=== PATIENT | male | born 1955 | race Caucasian/White ===

== ENCOUNTER 2018-09-26 12:25 | Emergency (ER) | payer OTHER ==
--- OUTSIDE RECORDS SUMMARY | 2018-09-26 12:27 | XMS REPORT ---
:1955 Author Organization eClinicalWorks Care Team Providers Name Role Phone Gael Mtz Provider Role Unavailable Allergies, Adverse Reactions, Alerts Substance Reaction Event Type N.K.D.A. Info Not Available Non Drug Allergy Problems Problem Type Condition Code Onset Dates Condition Status Assessment Left bicipital tenosynovitis M75.22 Active Assessment Impingement syndrome of left M75.42 Active shoulder Problem Impingement syndrome of left M75.42 Active shoulder Problem Pain in joint of left shoulder M25.512 Active Problem Adhesive capsulitis of left M75.02 Active shoulder Assessment Pain in joint of left shoulder M25.512 Active Assessment Adhesive capsulitis of left M75.02 Active shoulder Problem Left bicipital tenosynovitis M75.22 Active Medications No Known Medications Results No Known Results Summary Purpose eClinicalWorks Submission
[2018-09-26] MEDS ORDERED: NA CHLORIDE 0.9% 1,000 ML ONE (13:18)
[2018-09-26] MEDS ORDERED: MECLIZINE HCL 12.5 MG TAB ONE (13:18)
--- NOTE | 2018-09-26 13:31 | RAD REPORT ---
EXAM DESCRIPTION: CT - Head Brain Wo Cont - 09/26/2018 1:05 pm CLINICAL HISTORY: Dizziness COMPARISON: None TECHNIQUE: Computed axial tomography of the head was obtained. IV contrast was not requested. All CT scans are performed using dose optimization technique as appropriate and may include automated exposure control or mA/KV adjustment according to patient size. FINDINGS: An intracranial bleed is not seen . The ventricles are normal in caliber. No extra-axial fluid collection is noted. Mild low-density areas within periventricular, deep and subcortical white matter likely represent is chemic changes secondary to small vessel disease. Fluid within the sinuses/ mastoids is not seen. IMPRESSION: No acute intracranial abnormality is seen. If patient's symptoms persist MRI of the bra in would be recommended.
[2018-09-26 13:35] LABS: Absolute Lymphocytes (CBC) 1.9 K/uL (0.7-4.9); Basophils % 0.9 % (0-1.3); Eosinophils % 5.1 % (0-4.4); Hematocrit 47.4 % (39.6-49.0); Lymphocytes % 27.5 % (15.3-44.8); MPV 8.5 fL (7.6-11.3); Protime INR 1.08; RBC Red Blood Cell Count 5.08 M/uL (4.33-5.43)
[2018-09-26 13:47] LABS: BUN Blood Urea Nitrogen 12 mg/dL (7-18); Bicarbonate 24 mmol/L (21-32); Glucose Level 114 mg/dL (74-106); Magnesium 2.5 mg/dL (1.8-2.4); Potassium 3.7 mmol/L (3.5-5.1); Sodium Level 143 mmol/L (136-145); Troponin (Emerg Dept Use Only) < 0.02 ng/mL (0.0-0.045)
--- NOTE | 2018-09-26 14:48 | RAD REPORT ---
EXAM DESCRIPTION: CTHead angio09/26/2018 2:29 pm CLINICAL HISTORY: Syncope. COMPARISON: None TECHNIQUE: CT angiogram of the head was obtained. 3D MIPS reconstruction performed. All CT scans are performed using dose optimization technique as appropriate and may include automated exposure control or mA/KV adjustment according to patient size. FINDINGS: The basilar tip is bulbous measuring 5 x 3 millimeters The internal carotid, anterior cerebral, middle cerebral and posterior cerebral arteries are normal c aliber. An aneurysm is not seen. A significant stenosis is not noted. Dolichoectasia vertebrobasilar artery IMPRESSION: Basilar tip is bulbous measuring 5 x 3 millimeters. Follow-up MRA in 1 year recommended for re-evaluation
--- NOTE | 2018-09-26 14:52 | RAD REPORT ---
EXAM DESCRIPTION: Mary Angio09/26/2018 2:29 pm CLINICAL HISTORY: Syncope COMPARISON: None TECHNIQUE: 50 cc Isovue 370 was administered intravenously. 3D MIP reconstruction performed All CT scans are performed using dose optimization technique as appropriate and may include automated exposure control or mA/KV adjustment according to patient size. FINDINGS: Artifact limits evaluation of the proximal brachiocephalic artery. The common carotid, internal carotid and external carotid arteries appear unremarkable. An aneurysm is not noted. The vertebral arteries are codominant without visualization of an abnormality. IMPRESSION: Unremarkable examination NASCET criteria used. Mild 0-49% stenosis Moderate 50-69% stenosis Severe 70-99% stenosis
--- NOTE | 2018-09-26 15:27 | ER ---
Nurse's Notes [facility] Name: Renato Montoya Age: 63 yrs Sex: Male : 1955 Arrival Date: 09/26/2018 Time: 12:27 Bed 13 Private MD: Diagnosis: Vertigo Presentation: 09/26 12:29 Presenting complaint: Patient states: "I woke up yesterday and I was dizzy but then it aa5 went away and I started feeling dizzy and lightheaded again towards the end of the evening". Pt also c/o sinus pressure and dizziness today. Transition of care: patient was not received from another setting of care. Onset of symptoms was September 2018. Risk Assessment: Do you want to hurt yourself or someone else? Patient reports no desire to harm self or others. Initial Sepsis Screen: Does the patient meet any 2 criteria? No. Patient's initial sepsis screen is negative. Does the patient have a suspected source of infection? No. Patient's initial sepsis screen is negative. Care prior to arrival: None. 12:29 Acuity: HONEY 3 aa5 12:29 Method Of Arrival: Ambulatory aa5 Historical: - Allergies: 12:31 No Known Allergies; aa5 - Home Meds: 12:31 None [Active]; aa5 - PMHx: 12:31 None; aa5 - PSHx: 12:31 Cholecystectomy; aa5 - Immunization history:: Flu vaccine is not up to date. - Social history:: Smoking status: Patient/guardian denies using tobacco. - Ebola Screening: : No symptoms or risks identified at this time. - Family history:: not pertinent. - Hospitalizations: : No recent hospitalization is reported. Screenin:45 Abuse screen: Denies threats or abuse. Nutritional screening: No deficits noted. rb1 Tuberculosis screening: No symptoms or risk factors identified. Fall Risk None identified. Assessment: 12:45 General: Appears in no apparent distress. comfortable, Behavior is calm, cooperative, rb1 Denies fever. Pain: Denies pain. Neuro: Level of Consciousness is awake, alert, obeys commands, Oriented to person, place, time, situation, Reports dizziness, since Yesterday. Cardiovascular: Capillary refill < 3 seconds is brisk in bilateral fingers. Respiratory: Airway is patent Respiratory effort is even, unlabored, Respiratory pattern is regular, symmetrical. GI: No signs and/or symptoms were reported involving the gastrointestinal system. : No signs and/or symptoms were reported regarding the genitourinary system. EENT: Reports Sinus pressure in his head and ears.. Derm: Skin is pink, warm \\T\\ dry. 13:45 Reassessment: Patient appears in no apparent distress at this time. Patient and/or rb1 family updated on plan of care and expected duration. Pain level reassessed. Patient is alert, oriented x 3, equal unlabored respirations, skin warm/dry/pink. 14:44 Reassessment: Patient appears in no apparent distress at this time. No changes from rb1 previously documented assessment. at bedside. 15:30 Reassessment: Patient appears in no apparent distress at this time. Patient and/or rb1 family updated on plan of care and expected duration. Pain level reassessed. Patient is alert, oriented x 3, equal unlabored respirations, skin warm/dry/pink. Patient states symptoms have improved. Vital Signs: 12:31 BP 115 / 78; Pulse 81; Resp 16 S; Temp 98.7(TE); Pulse Ox 97% on R/A; Weight 83.91 kg aa5 (R); Height 5 ft. 6 in. (167.64 cm) (R); Pain 0/10; 13:25 BP 123 / 81; Pulse 63; Resp 17; Temp 97.9(O); Pulse Ox 95% ; mh5 14:25 BP 119 / 81; Pulse 62; Resp 12; Temp 98.5(O); Pulse Ox 96% on R/A; Pain 0/10; rb1 15:20 BP 128 / 77; Pulse 60; Resp 15; Temp 97.9; Pulse Ox 99% ; Pain 0/10; rb1 12:31 Body Mass Index 29.86 (83.91 kg, 167.64 cm) aa5 ED Course: 12:27 Patient arrived in ED. as 12:30 Triage completed. aa5 12:30 Arm band placed on. aa5 12:36 Walter Zamora MD is Attending Physician. rn 12:45 Patient has correct armband on for positive identification. Bed in low position. Call rb1 light in reach. Side rails up X 1. Pulse ox on. NIBP on. 12:46 Layne Lerner, RN is Primary Nurse. rb1 13:05 CT completed. Patient tolerated procedure well. Patient moved back from CT. mw3 13:05 CT Head Brain wo Cont In Process Unspecified. EDMS 13:25 Initial lab(s) drawn, by me, sent to lab. Inserted saline lock: 22 gauge in right mh5 antecubital area, using aseptic technique. Blood collected. 13:47 Radiology exam delayed due to lab results not completed at this time. (BUN/Creatinine). mw3 14:29 CT Head Angio In Process Unspecified. EDMS 14:29 CT Neck Angio In Process Unspecified. EDMS 15:42 No provider procedures requiring assistance completed. IV discontinued, intact, rb1 bleeding controlled, No redness/swelling at site. Pressure dressing applied. Administered Medications: 13:40 Drug: Meclizine 50 mg Route: PO; rb1 14:12 Follow up: Response: No adverse reaction; Marked relief of symptoms rb1 13:40 Drug: NS 0.9% 1000 ml Route: IV; Rate: 1000 ml; Site: right antecubital; rb1 15:02 Follow up: IV Status: Completed infusion rb1 Outcome: 15:26 Discharge ordered by . rn 15:42 Patient left the ED. rb1 15:42 Discharged to home ambulatory. rb1 15:42 Condition: stable 15:42 Discharge instructions given to patient, Instructed on discharge instructions, follow up and referral plans. medication usage, Demonstrated understanding of instructions, follow-up care, medications, Prescriptions given X 2. Signatures: Dispatcher [employer] Lisa Albarran Roman, MD MD rn Calderon, Audri, RN RN [facility] Layne Lerner RN RN [facility] Shania Pedersen mw3
--- NOTE | 2018-09-26 15:28 | EDPHYS ---
Physician Documentation [facility] Name: Renato Montoya Age: 63 yrs Sex: Male : 1955 Arrival Date: 09/26/2018 Time: 12:27 Bed 13 Private MD: ED Physician Walter Zamora HPI: 09/26 13:22 This 63 yrs old Male presents to ER via Ambulatory with complaints of rn Dizziness. 13:22 The patient presents with feeling off balance. rn 13:23 Onset: The symptoms/episode began/occurred yesterday. Modifying factors: The symptoms rn are alleviated by nothing, the symptoms are aggravated by nothing. Severity of symptoms: At their worst the symptoms were moderate in the emergency department the symptoms are unchanged. The patient has not experienced similar symptoms in the past. Reports yesterday when woke up felt dizzy, off balance, no fall or trauma, no other focal neurological complaint. States can last up to 30 min, improves, then comes back, Feels same or worse today. No vomiting. + mild head pressure. No chest pain/sob/abd pain/back pain/vomiting/diarrhea.. Historical: - Allergies: 12:31 No Known Allergies; aa5 - Home Meds: 12:31 None [Active]; aa5 - PMHx: 12:31 None; aa5 - PSHx: 12:31 Cholecystectomy; aa5 - Immunization history:: Flu vaccine is not up to date. - Social history:: Smoking status: Patient/guardian denies using tobacco. - Ebola Screening: : No symptoms or risks identified at this time. - Family history:: not pertinent. - Hospitalizations: : No recent hospitalization is reported. ROS: 13:23 Constitutional: Negative for fever, chills, and weight loss, Eyes: Negative for injury, rn pain, redness, and discharge, Neck: Negative for injury, pain, and swelling, Cardiovascular: Negative for chest pain, palpitations, and edema, Respiratory: Negative for shortness of breath, cough, wheezing, and pleuritic chest pain, Abdomen/GI: Negative for abdominal pain, nausea, vomiting, diarrhea, and constipation, MS/Extremity: Negative for injury and deformity, Skin: Negative for injury, rash, and discoloration, Neuro: Negative for weakness, numbness, tingling, and seizure. Exam: 13:23 Constitutional: This is a well developed, well nourished patient who is awake, alert, rn and in no acute distress. Head/Face: Normocephalic, atraumatic. Eyes: Pupils equal round and reactive to light, extra-ocular motions intact. Lids and lashes normal. Conjunctiva and sclera are non-icteric and not injected. Cornea within normal limits. Periorbital areas with no swelling, redness, or edema. ENT: MMM Neck: Trachea midline, no thyromegaly or masses palpated, and no cervical lymphadenopathy. Supple, full range of motion without nuchal rigidity, or vertebral point tenderness. No Meningismus. Cardiovascular: Regular rate and rhythm. No pulse deficits. Respiratory: Lungs have equal breath sounds bilaterally, clear to auscultation. No increased work of breathing, no retractions or nasal flaring. Abdomen/GI: soft, non-tender MS/ Extremity: Pulses equal, no cyanosis. Neurovascular intact. Full, normal range of motion. Equal circumference. Neuro: Awake and alert, GCS 15, oriented to person, place, time, and situation. Cranial nerves II-XII grossly intact. Motor strength 5/5 in all extremities. Sensory grossly intact. Cerebellar exam normal. Normal gait. Vital Signs: 12:31 BP 115 / 78; Pulse 81; Resp 16 S; Temp 98.7(TE); Pulse Ox 97% on R/A; Weight 83.91 kg aa5 (R); Height 5 ft. 6 in. (167.64 cm) (R); Pain 0/10; 13:25 BP 123 / 81; Pulse 63; Resp 17; Temp 97.9(O); Pulse Ox 95% ; mh5 14:25 BP 119 / 81; Pulse 62; Resp 12; Temp 98.5(O); Pulse Ox 96% on R/A; Pain 0/10; rb1 15:20 BP 128 / 77; Pulse 60; Resp 15; Temp 97.9; Pulse Ox 99% ; Pain 0/10; rb1 12:31 Body Mass Index 29.86 (83.91 kg, 167.64 cm) aa5 MDM: 12:36 Patient medically screened. rn 15:22 Differential diagnosis: hypovolemia, idiopathic dizziness, near-syncope, TIA, vertigo. rn Data reviewed: vital signs, nurses notes, lab test result(s), EKG, radiologic studies, CT scan, and as a result, I will discharge patient. Counseling: I had a detailed discussion with the patient and/or guardian regarding: the historical points, exam findings, and any diagnostic results supporting the discharge/admit diagnosis, lab results, radiology results, the need for outpatient follow up, to return to the emergency department if symptoms worsen or persist or if there are any questions or concerns that arise at home. Response to treatment: the patient's symptoms have markedly improved after treatment, the patient's condition has returned to base line, and as a result, I will discharge patient. Special discussion: I discussed with the patient/guardian in detail that at this point there is no indication for admission to the hospital. It is understood, however, that if the symptoms persist or worsen the patient needs to return immediately for re-evaluation. Based on the history and exam findings, there is no indication for further emergent testing or inpatient evaluation. I discussed with the patient/guardian the need to see the neurologist for further evaluation of the symptoms. ED course: Patient improved, no longer dizzy after fluids and meclizine, no acute findings on ct head or CTA head/neck. Bulbous basilar tip but no aneurysm or blockage/stenosis. Will dc home with meclizine prn and neuro f/u. . 09/26 12:49 Order name: Basic Metabolic Panel; Complete Time: 13:55 rn 09/26 12:49 Order name: CBC with Diff; Complete Time: 13:55 rn 09/26 12:49 Order name: Magnesium; Complete Time: 13:55 09/26 12:49 Order name: Protime (+inr); Complete Time: 13:55 rn 09/26 12:49 Order name: Ptt, Activated; Complete Time: 13:55 rn 09/26 12:49 Order name: Troponin (emerg Dept Use Only); Complete Time: 13:55 09/26 12:49 Order name: CT Head Brain wo Cont; Complete Time: 13:35 rn 09/26 12:49 Order name: EKG; Complete Time: 12:51 rn 09/26 12:49 Order name: Cardiac monitoring; Complete Time: 13:42 rn 09/26 12:49 Order name: EKG - Nurse/Tech; Complete Time: 17:08 rn 09/26 13:36 Order name: CT Head Angio; Complete Time: 15:07 rn 09/26 13:36 Order name: CT Neck Angio; Complete Time: 15:07 rn 09/26 12:49 Order name: IV Saline Lock; Complete Time: 13:42 rn 09/26 12:49 Order name: Labs collected and sent; Complete Time: 13:42 rn 09/26 12:49 Order name: NPO; Complete Time: 13:42 rn 09/26 12:49 Order name: O2 Per Protocol; Complete Time: 13:42 rn 09/26 12:49 Order name: O2 Sat Monitoring; Complete Time: 13:42 rn Administered Medications: 13:40 Drug: Meclizine 50 mg Route: PO; rb1 14:12 Follow up: Response: No adverse reaction; Marked relief of symptoms rb1 13:40 Drug: NS 0.9% 1000 ml Route: IV; Rate: 1000 ml; Site: right antecubital; rb1 15:02 Follow up: IV Status: Completed infusion rb1 Disposition: 09/26/18 15:26 Discharged to Home. Impression: Vertigo. - Condition is Stable. - Prescriptions for Zofran ODT 4 mg Oral tablet,disintegrating - place 1 tablet by TRANSLINGUAL route every 8 hours As needed; 15 tablet. Meclizine 25 mg Oral Tablet - take 1 tablet by ORAL route every 8 hours As needed; 30 tablet. - Medication Reconciliation Form, Thank You Letter, Antibiotic Education, Prescription Opioid Use form. - Follow up: Private Physician; When: As needed; Reason: Recheck today's complaints, Re-evaluation by your physician. - Problem is new. - Symptoms have improved. Signatures: Dispatcher [employer] EDME Walter Zamora MD MD rn Calderon, Audri RN RN aa5 Layne Lerner, ANÍBAL RN rb1 Corrections: (The following items were deleted from the chart) 15:42 15:26 09/26/2018 15:26 Discharged to Home. Impression: Vertigo. Condition is Stable. rb1 Forms are Medication Reconciliation Form, Thank You Letter, Antibiotic Education, Prescription Opioid Use. Follow up: Private Physician; When: As needed; Reason: Recheck today's complaints, Re-evaluation by your physician. Problem is new. Symptoms have improved. rn
[2018-09-26 16:17] VITALS: BP 119/81; TEMP 98.5; O2SAT 96
--- NOTE | 2018-09-26 20:08 | EKG ---
Test Date: 2018-09-26 Test Time: 15:34:16 [employer] Apprentice Arc: IZZY MEASUREMENT RESULTS: Intervals: Rate: 55 MA: 256 QRSD: 92 QT: 426 QTc: 407 [place]: P: 34 MA: 256 QRS: 22 T: 53 INTERPRETIVE STATEMENTS: Sinus bradycardia with 1st degree AV block Otherwise normal ECG Compared to ECG 02/01/2015 17:39:21 Sinus rhythm no longer present Electronically Signed On 09-26-18 20:08:10 CDT by Jose Alfredo Montoya
== END 2018-09-26 15:42 | disposition home or self-care (01) ==
LOC: ER 12:25
DX: R42 Dizziness and giddiness (principal)
CPT/HCPCS: 93005; 85025; 80048; 36415; 83735; 85610; 85730; 84484; 70450; 70496; 70498; 96360; 99284; Q9967; J7030

== ENCOUNTER 2018-11-08 11:19 | Observation (INO) | payer OTHER ==
--- OUTSIDE RECORDS SUMMARY | 2018-11-08 11:29 | XMS REPORT ---
:1955 Author Organization eClinicalWorks Care Team Providers Name Role Phone Gael Mtz Provider Role Unavailable Allergies, Adverse Reactions, Alerts Substance Reaction Event Type N.K.D.A. Info Not Available Non Drug Allergy Problems Problem Type Condition Code Onset Dates Condition Status Assessment Adhesive capsulitis of left M75.02 Active shoulder Assessment Left bicipital tenosynovitis M75.22 Active Problem Impingement syndrome of left M75.42 Active shoulder Problem Pain in joint of left shoulder M25.512 Active Problem Adhesive capsulitis of left M75.02 Active shoulder Assessment Pain in joint of left shoulder M25.512 Active Assessment Impingement syndrome of left M75.42 Active shoulder Problem Left bicipital tenosynovitis M75.22 Active Medications Medication Code System Code Instructions Start Date End Date Status Dosage Meclizine HCl [facility] [id number] Active not defined 6-10 Results No Known Results Summary Purpose eClinicalWorks Submission
[2018-11-08] MEDS ORDERED: Levofloxacin 750mg IV 750 MG/150 ML BAG IV ONE (12:23)
[2018-11-08] MEDS ORDERED: CEFTRIAXONE/SWI 1gm 2 GM/20 ML SYR ONE (12:24)
[2018-11-08 12:55] LABS: Urine Blood 2+ (NEG); Urine Glucose NEGATIVE (NEG); Urine Protein 1+ (NEG); Urine pH 6.5 (5.0-7.0)
--- NOTE | 2018-11-08 12:55 | RAD REPORT ---
EXAM DESCRIPTION: RAD - Chest Single View - 11/08/2018 12:49 pm CLINICAL HISTORY: Fever, chills COMPARISON: January 2015 TECHNIQUE: AP portable chest image was obtained 1243 hours . FINDINGS: Lungs are clear. Heart and vasculature are normal. No measurable pleural effusion and no p neumothorax. No acute bony abnormality seen. No acute aortic findings suspected. IMPRESSION: No acute cardiopulmonary process. No suspicious interval change.
[2018-11-08 13:00] LABS: Absolute Lymphocytes (CBC) 1.3 K/uL (0.7-4.9); Basophils % 0.2 % (0-1.3); Hematocrit 46.6 % (39.6-49.0); Lymphocytes % 8.5 % (15.3-44.8); MPV 8.6 fL (7.6-11.3); RBC Red Blood Cell Count 5.01 M/uL (4.33-5.43)
--- NOTE | 2018-11-08 13:00 | RAD REPORT ---
EXAM DESCRIPTION: CT - Stone Protocol - 11/08/2018 12:49 pm CLINICAL HISTORY: Abdominal pain, fever, chills, body aches, dysuria COMPARISON: CT imaging August 2015 TECHNIQUE: Axial 5 mm thick images were obtained without oral or IV contrast. The [id number] span s the entirety of the system partially obscuring uppermost abdomen and lung bases. All CT scans are performed using dose optimization technique as appropriate and may include automated exposure control or mA/KV adjustment according to patient size. FINDINGS: No hydronephrosis is present and no obstructing ureteral calculi. No suspicious renal mass es. Isodense masses and pyelonephritis are not excluded on a stone protocol CT scan. Urinary bladder is only partially filled. No gross evidence for bladder wall thickening. Prostate gland is enlarged s imilar to comparison. No significant adrenal finding. Imaged portions of the liver, spleen and pancreas show no suspicious findings on non-contrast imaging . Cholecystectomy clips are present. No biliary tree dilatation. No suspicious bowel findings. Appendix is normal. No hernia, mass or bulky lymphadenopathy noted. No free air, free fluid or inflammatory stranding. No significant bony abnormality. IMPRESSION: No hydronephrosis or obstructing calculi. No acute GI process seen. Isodense masses and pyelonephritis are not excluded on stone protocol technique.Cystitis and prostati tis are not excluded on noncontrast imaging.
[2018-11-08] MEDS ORDERED: ACETAMINOPHEN 500 MG TAB ONE (13:05)
[2018-11-08 13:17] LABS: Albumin 3.8 g/dL (3.4-5.0); Bilirubin Total 1.4 mg/dL (0.2-1.0); Potassium 3.9 mmol/L (3.5-5.1); Protein, Total 7.6 g/dL (6.4-8.2)
--- NOTE | 2018-11-08 13:23 | ER ---
Nurse's Notes [facility] Name: Renato Montoya Age: 63 yrs Sex: Male : 1955 Arrival Date: 11/08/2018 Time: 11:24 Bed 18 Private MD: Kelton Golden R Diagnosis: Urinary tract infection, site not specified;Fever, unspecified-prosititis;Elevated white blood cell count;Weakness Presentation: 11/08 11:38 Presenting complaint: Patient states: fever, chills since yesterday, body aches, mild iw burning with urination this morning, denies cough, denies vomiting or diarrhea. Transition of care: patient was not received from another setting of care. Onset of symptoms was November 07, 2018. Risk Assessment: Do you want to hurt yourself or someone else? Patient reports no desire to harm self or others. Initial Sepsis Screen: Does the patient meet any 2 criteria? No. Patient's initial sepsis screen is negative. Does the patient have a suspected source of infection? No. Patient's initial sepsis screen is negative. Care prior to arrival: None. 11:38 Method Of Arrival: Ambulatory iw 11:38 Acuity: HONEY 3 iw Historical: - Allergies: 11:40 No Known Allergies; iw - Home Meds: 11:40 Meclizine Oral [Active]; iw - PMHx: 11:40 vertigo; Diverticulitis; iw - PSHx: 11:40 None; iw - Immunization history:: Adult Immunizations not up to date. - Social history:: Smoking status: Patient/guardian denies using tobacco. - Ebola Screening: : Patient negative for fever greater than or equal to 101.5 degrees Fahrenheit, and additional compatible Ebola Virus Disease symptoms Patient denies exposure to infectious person Patient denies travel to an Ebola-affected area in the 21 days before illness onset No symptoms or risks identified at this time. - Family history:: not pertinent. Screenin:30 Abuse screen: Denies threats or abuse. Denies injuries from another. Nutritional jl7 screening: No deficits noted. Tuberculosis screening: No symptoms or risk factors identified. Fall Risk IV access (20 points). Total Sabillon Fall Scale indicates No Risk (0-24 pts). Assessment: 12:30 General: Appears in no apparent distress. uncomfortable, Behavior is calm, cooperative, jl7 appropriate for age. Pain: Complains of pain in body aches. Neuro: Level of Consciousness is awake, alert, obeys commands, Oriented to person, place, time, situation. Cardiovascular: Patient's skin is warm and dry. Respiratory: Airway is patent Respiratory effort is even, unlabored, Respiratory pattern is regular, symmetrical. GI: No signs and/or symptoms were reported involving the gastrointestinal system. : Reports burning with urination. Derm: Skin is pink, warm \T\ dry. Vital Signs: 11:41 BP 119 / 82; Pulse 100; Resp 16 S; Temp 99.0(O); Pulse Ox 96% on R/A; Pain 0/10; iw 12:26 BP 118 / 71; Pulse 100; Resp 18; Temp 100.9(TE); Pulse Ox 94% on R/A; mh5 13:33 BP 120 / 75; Pulse 93; Resp 16 S; Pulse Ox 95% on R/A; jl7 14:00 Temp 99.3; 7 ED Course: 11:24 Patient arrived in ED. mr 11:24 Osvaldo Vicente MD is Attending Physician. tatyana 11:24 Kelton Golden MD is Private Physician. mr 11:39 Triage completed. iw 11:41 Arm band placed on. iw 11:48 Ethan Ferrell, ANÍBAL is Primary Nurse. 7 11:57 Patient has correct armband on for positive identification. Bed in low position. Call [facility] light in reach. Pulse ox on. NIBP on. 11:57 Urine collected: clean catch specimen, cloudy, Amount Voided: 120mL. [facility] 12:19 Urine Dipstick--Ancillary (enter results) Sent. [facility] 12:24 Urine Culture Sent. 5 12:30 Initial lab(s) drawn, by ca, sent to lab. First set of blood cultures drawn by me. 7 Inserted saline lock: 20 gauge in left antecubital area, using aseptic technique. Blood collected. 12:45 Second set of blood cultures drawn. 7 12:50 CT completed. Patient tolerated procedure well. Patient moved to CT via wheelchair. jg6 Patient moved back from CT. 13:21 Kelton Golden MD is Hospitalizing Provider. tatyana 14:22 No provider procedures requiring assistance completed. Patient admitted, IV remains in jl7 place. intact, No redness/swelling at site. Administered Medications: 12:45 Drug: Rocephin 2 grams Route: IV; Rate: per protocol; Site: left antecubital; 7 12:48 Follow up: Response: No adverse reaction; IV Status: Completed infusion jl7 13:00 Drug: levofloxacin 750 mg Volume: 150 ml; Route: IVPB; Infused Over: 90 mins; Site: [facility] left antecubital; 14:30 Follow up: Response: No adverse reaction; IV Status: Completed infusion jl7 13:00 Drug: Tylenol 1000 mg Route: PO; jl7 14:00 Follow up: Temp 99.3; Response: No adverse reaction; Temperature is decreased jl Outcome: 13:23 Decision to Hospitalize by Provider. tatyana 14:21 Admitted to Med/surg accompanied by tech, via wheelchair, room 216, with chart, Report jl7 called to ANÍBAL Burciaga 14:21 Condition: stable 14:21 Discharge instructions given to patient, Instructed on the need for admit, Demonstrated understanding of instructions. 14:55 Patient left the ED. jl Signatures: Osvaldo Vicente MD MD cha Rivera, Mary mr Williams, Irene, RN Melissa Lawrence Jahala, RN RN jl7 Garcia, Jessica jg6
--- NOTE | 2018-11-08 13:24 | EDPHYS ---
Physician Documentation [facility] Name: Renato Montoya Age: 63 yrs Sex: Male : 1955 Arrival Date: 11/08/2018 Time: 11:24 Bed 18 Private MD: Kelton Golden R ED Physician Osvaldo Vicente HPI: 11/08 12:18 This 63 yrs old Male presents to ER via Ambulatory with complaints of Chills, tatyana Fever. 12:18 The patient reports fever, that was measured at 100 degrees Fahrenheit. Onset: The tatyana symptoms/episode began/occurred 3 day(s) ago. Modifying factors: there are no obvious modifying factors. Associated signs and symptoms: Pertinent positives: abdominal pain. Severity of symptoms: At their worst the symptoms were mild in the emergency department the symptoms are unchanged. The patient has not experienced similar symptoms in the past. Historical: - Allergies: 11:40 No Known Allergies; iw - Home Meds: 11:40 Meclizine Oral [Active]; iw - PMHx: 11:40 vertigo; Diverticulitis; iw - PSHx: 11:40 None; iw - Immunization history:: Adult Immunizations not up to date. - Social history:: Smoking status: Patient/guardian denies using tobacco. - Ebola Screening: : Patient negative for fever greater than or equal to 101.5 degrees Fahrenheit, and additional compatible Ebola Virus Disease symptoms Patient denies exposure to infectious person Patient denies travel to an Ebola-affected area in the 21 days before illness onset No symptoms or risks identified at this time. - Family history:: not pertinent. ROS: 12:18 Constitutional: Negative for fever, chills, and weight loss, Eyes: Negative for injury, tatyana pain, redness, and discharge, ENT: Negative for injury, pain, and discharge, Neck: Negative for injury, pain, and swelling, Cardiovascular: Negative for chest pain, palpitations, and edema, Respiratory: Negative for shortness of breath, cough, wheezing, and pleuritic chest pain, Back: Negative for injury and pain, MS/Extremity: Negative for injury and deformity, Skin: Negative for injury, rash, and discoloration, Neuro: Negative for headache, weakness, numbness, tingling, and seizure, Psych: Negative for depression, anxiety, suicide ideation, homicidal ideation, and hallucinations, Allergy/Immunology: Negative for hives, rash, and allergies, Endocrine: Negative for neck swelling, polydipsia, polyuria, polyphagia, and marked weight changes, Hematologic/Lymphatic: Negative for swollen nodes, abnormal bleeding, and unusual bruising. 12:18 Abdomen/GI: Positive for abdominal pain, abdominal distension, of the suprapubic area. Exam: 12:18 Constitutional: This is a well developed, well nourished patient who is awake, alert, tatyana and in no acute distress. Head/Face: Normocephalic, atraumatic. Eyes: Pupils equal round and reactive to light, extra-ocular motions intact. Lids and lashes normal. Conjunctiva and sclera are non-icteric and not injected. Cornea within normal limits. Periorbital areas with no swelling, redness, or edema. ENT: Nares patent. No nasal discharge, no septal abnormalities noted. Tympanic membranes are normal and external auditory canals are clear. Oropharynx with no redness, swelling, or masses, exudates, or evidence of obstruction, uvula midline. Mucous membranes moist. Neck: Trachea midline, no thyromegaly or masses palpated, and no cervical lymphadenopathy. Supple, full range of motion without nuchal rigidity, or vertebral point tenderness. No Meningismus. Chest/axilla: Normal chest wall appearance and motion. Nontender with no deformity. No lesions are appreciated. Cardiovascular: Regular rate and rhythm with a normal S1 and S2. No gallops, murmurs, or rubs. Normal PMI, no JVD. No pulse deficits. Respiratory: Lungs have equal breath sounds bilaterally, clear to auscultation and percussion. No rales, rhonchi or wheezes noted. No increased work of breathing, no retractions or nasal flaring. Back: No spinal tenderness. No costovertebral tenderness. Full range of motion. Male : Normal genitalia with no discharge or lesions. Skin: Warm, dry with normal turgor. Normal color with no rashes, no lesions, and no evidence of cellulitis. MS/ Extremity: Pulses equal, no cyanosis. Neurovascular intact. Full, normal range of motion. Neuro: Awake and alert, GCS 15, oriented to person, place, time, and situation. Cranial nerves II-XII grossly intact. Motor strength 5/5 in all extremities. Sensory grossly intact. Cerebellar exam normal. Normal gait. Psych: Awake, alert, with orientation to person, place and time. Behavior, mood, and affect are within normal limits. 12:18 Abdomen/GI: Inspection: abdomen appears normal, Bowel sounds: normal, Palpation: mild abdominal tenderness, in the suprapubic area, right lower quadrant and left lower quadrant, Liver: no appreciated palpable abnormalities, Hernia: not appreciated. Vital Signs: 11:41 BP 119 / 82; Pulse 100; Resp 16 S; Temp 99.0(O); Pulse Ox 96% on R/A; Pain 0/10; iw 12:26 BP 118 / 71; Pulse 100; Resp 18; Temp 100.9(TE); Pulse Ox 94% on R/A; mh5 13:33 BP 120 / 75; Pulse 93; Resp 16 S; Pulse Ox 95% on R/A; jl7 14:00 Temp 99.3; jl7 MDM: 11:34 Patient medically screened. [facility] 12:21 Data reviewed: vital signs, nurses notes, lab test result(s), CBC, electrolytes, [facility] hepatic panel, urinalysis, radiologic studies, CT scan. 11/08 11:58 Order name: Urine Dipstick--Ancillary (enter results); Complete Time: 13:19 bd 11/08 12:18 Order name: CBC with Diff; Complete Time: 13:19 [facility] 11/08 12:18 Order name: Comprehensive Metabolic Panel [facility] 11/08 12:18 Order name: Blood Culture Adult (2) [facility] 11/08 12:18 Order name: Urine Culture [facility] 11/08 12:18 Order name: Procalcitonin [facility] 11/08 11:42 Order name: Urine Dipstick-Ancillary (obtain specimen); Complete Time: 11:56 iw 11/08 12:18 Order name: Chest Single View XRAY [facility] 11/08 12:18 Order name: CT Stone Protocol [facility] 11/08 13:07 Order name: RAD; Complete Time: 13:19 EDMS 11/08 13:18 Order name: CT; Complete Time: 13:19 EDMS Administered Medications: 12:45 Drug: Rocephin 2 grams Route: IV; Rate: per protocol; Site: left antecubital; [facility] 12:48 Follow up: Response: No adverse reaction; IV Status: Completed infusion jl7 13:00 Drug: levofloxacin 750 mg Volume: 150 ml; Route: IVPB; Infused Over: 90 mins; Site: 7 left antecubital; 14:30 Follow up: Response: No adverse reaction; IV Status: Completed infusion 13:00 Drug: Tylenol 1000 mg Route: PO; jl7 14:00 Follow up: Temp 99.3; Response: No adverse reaction; Temperature is decreased jl Disposition: 11/08/18 13:23 Hospitalization ordered by Kelton Golden for Observation. Preliminary diagnosis are Urinary tract infection, site not specified, Fever, unspecified - prosititis, Elevated white blood cell count, Weakness. - Bed requested for Telemetry/MedSurg (observation). - Status is Observation. jl7 - Condition is Fair. - Problem is new. - Symptoms have improved. UTI on Admission? Yes Signatures: Dispatcher [employer] EDMS Mona Mock Corey, MD MD cha Williams, Irene, RN RN Ethan Ferrell RN RN jl7 Corrections: (The following items were deleted from the chart) 13:35 13:23 Hospitalization Ordered by Kelton Golden MD for Inpatient Admission. Preliminary tatyana diagnosis is Urinary tract infection, site not specified; Fever, unspecified - prosititis; Elevated white blood cell count; Weakness. Bed requested for Telemetry/MedSurg (Inpatient). Status is Inpatient Admission. Condition is Fair. Problem is new. Symptoms have improved. UTI on Admission? Yes. [facility] 13:43 13:35 11/08/2018 13:23 Hospitalization Ordered by Kelton Golden MD for Observation. debbie Preliminary diagnosis is Urinary tract infection, site not specified; Fever, unspecified - prosititis; Elevated white blood cell count; Weakness. Bed requested for Telemetry/MedSurg (observation). Status is Observation. Condition is Fair. Problem is new. Symptoms have improved. UTI on Admission? Yes. tatyana 14:55 13:43 11/08/2018 13:23 Hospitalization Ordered by Kleton Golden MD for Observation. jl7 Preliminary diagnosis is Urinary tract infection, site not specified; Fever, unspecified - prosititis; Elevated white blood cell count; Weakness. Bed requested for Telemetry/MedSurg (observation). Status is Observation. Condition is Fair. Problem is new. Symptoms have improved. UTI on Admission? Yes. bd
[2018-11-08] MEDS ORDERED: ONDANSETRON 4 MG/2 ML VIAL IV PRN (15:07)
[2018-11-08] MEDS ORDERED: Levofloxacin 750mg IV 750 MG/150 ML BAG IV SCH (15:07)
[2018-11-08] MEDS ORDERED: ACETAMINOPHEN 500 MG TAB PO PRN (15:07)
[2018-11-08] MEDS ORDERED: MORPHINE 4 MG/ML SYR IV PRN (15:07)
[2018-11-08 15:10] VITALS: BMI 30.1
[2018-11-08] MEDS: NA CHLORIDE 0.9% 1,000 ML IV SCH ×2 (15:45→22:32)
[2018-11-08] MEDS ORDERED: PNEUMOCOCCAL VACCINE 0.5 ML IMVAC ONE (18:00)
[2018-11-08] MEDS ORDERED: CEFTRIAXONE 1 GM/NS 50 ML 1 GM/50 ML BAG IV SCH (21:00)
[2018-11-09] MEDS: ACETAMINOPHEN 500 MG TAB PO PRN ×2 (00:25→14:17)
[2018-11-09] MEDS: CEFTRIAXONE/SWI 1gm 1 GM/10 ML SYR IV SCH ×2 (05:00→16:46)
[2018-11-09] MEDS: NA CHLORIDE 0.9% 1,000 ML IV SCH ×3 (05:37→23:53)
[2018-11-09 05:40] LABS: Absolute Lymphocytes (CBC) 1.1 K/uL (0.7-4.9); Basophils % 0.4 % (0-1.3); Hematocrit 45.2 % (39.6-49.0); Lymphocytes % 10.6 % (15.3-44.8); MPV 8.1 fL (7.6-11.3)
[2018-11-09 06:04] LABS: Albumin 3.4 g/dL (3.4-5.0); Bilirubin Direct 0.4 mg/dL (0-0.2); Bilirubin Total 1.3 mg/dL (0.2-1.0); Protein, Total 7.5 g/dL (6.4-8.2)
[2018-11-09] MEDS ORDERED: Levofloxacin 750mg IV 750 MG/150 ML BAG IV SCH (17:00)
--- NOTE | 2018-11-09 19:17 | CON ---
Subjective: A pleasant 63-year-old gentleman with some UTI symptoms that started began 2 nights ago, having some frequency with some dysuria, fever, and chills yesterday. So, he came to the emergency room where a CAT scan was done that was essentially negative. Patient has no history of BPH. No his tory of prostate cancer, bladder cancer, kidney cancer, or any cancers. He passed 1 stone years a go, but nothing frequently. He has no other abnormalities. He said he went to a few days ago and drank some beer. He does not believe he was dehydrated, so he is not really sure why this U TI occurred. Allergies: NO KNOWN DRUG ALLERGIES. Home Medications: Meclizine. Past Medical History: Vertigo, diverticulitis. Past Surgical History: None. Immunizations: Up to date. Review of Systems: As above. Physical Examination: Vital Signs: Patient's vital signs this morning; 99.1, 85, 16, 114/68, 96% saturations on room air. HEENT: Atraumatic and normocephalic. Lungs: Clear. Heart: S1, S2. Abdomen: Soft, nontender. : Both testicles descended. Phallus normal. No lesions. MARTINE about 35-40 g benign feeling prosta te. No signs of prostatitis. Laboratory Data: He has had an elevated white count of 15.8 yesterday, today is 10.7, H and H are 15 .7 and 45, platelet count 152. Chemistry shows GFR of 63, the rest appears normal. Sodium, potassiu m, chloride, carbon dioxide, BUN, creatinine all within normal limits. Creatinine is 1.2. Urine ting ws 3+ leukocyte esterase, positive nitrites. Microbiology cultures are pending and the urine is grow ing greater than 10 to the 5th gram-negative rods. Assessment: Urinary tract infection. Continue treatment with Rocephin, wait for final culture. Hoa haney is also on Levaquin. We await the final culture and sensitivity shows. UMAIR/SAMREEN Voice ID: [id number] Report ID: [id number]
--- NOTE | 2018-11-09 23:32 | HP ---
Date of Admission: 11/08/2018 Chief Complaint: Fever, chills, dysuria. History Of Present Illness: A 63-year-old male was brought to the emergency room with fever, chills, and dysuria. He was found to have evidence of UTI and possibly prostatitis. Patient in view of his elevated white count, fever and symptoms, he is admitted. Patient denied any history of passing kid damien stone. No history of hematuria. Past Medical History: Patient is known to have recurrent vertigo, for which he takes meclizine. He also has history of diverticulitis. Family History: Noncontributory. Personal History: Nonsmoker. Home Medicines: Meclizine. Allergies: NONE. Review of Systems: Patient denied any chest pain, shortness of breath, or other cardiovascular symptoms. Physical Examination: General: Revealed 63-year-old male, alert for his age. HEENT: Negative. Neck: Supple. JVD negative. Chest: Clear. Heart: Regular. Abdomen: Soft. Extremities: No edema. Laboratory Data: White count 15.8 at admission. Chem profile essentially negative except for biliru bin of 1.4. Procalcitonin 0.26. Urinalysis, nitrite positive, blood positive. Urine culture preliminary report shows gram-negative rods. CAT scan did not show any obstructive uropathy. Assessment: 1.Urinary tract infection, symptomatic. 2.Possible prostatitis. 3.History of diverticulitis. 4.History of recurrent vertigo. Plan: IV Levaquin and Rocephin. Urology consultation. AMILCAR/SAMREEN Voice ID: [id number]
[2018-11-10] MEDS: CEFTRIAXONE/SWI 1gm 1 GM/10 ML SYR IV SCH (04:15)
[2018-11-10 05:51] VITALS: O2SAT 96
[2018-11-10] MEDS: ACETAMINOPHEN 500 MG TAB PO PRN (07:37)
[2018-11-10] MEDS: NA CHLORIDE 0.9% 1,000 ML IV SCH (07:37)
[2018-11-10] MEDS ORDERED: SMZ./TMP. 800/160 MG TABLET PO SCH (09:00)
[2018-11-10 13:59] VITALS: TEMP 97.8
[2018-11-10 14:00] VITALS: BP 109/66
--- NOTE | 2018-11-10 14:17 | PN ---
Subjective: Patient is feeling well. Objective: Urine culture came back E coli, pansensitive. He will be going home on antibiotics for his UTI per Dr. Golden. He is to follow up with me p.r.n. W e still not find the reason for his UTI. I have encouraged him to drink lots of water for hydration. If he has any further problems, to contact me in the office. UMAIR/SAMREEN Voice ID: [id number] Report ID: [id number]
== END 2018-11-10 13:58 | disposition home or self-care (01) ==
LOC: ER 11:19 → INTOOBSV 13:26 → ERHOLD 13:26 → 2ND 14:21
PROVIDERS: ADMIT Internal Medicine; ATTEND Internal Medicine
DX: N39.0 Urinary tract infection, site not specified (principal); B96.20 Unspecified Escherichia coli [E. coli] as the cause of diseases classified elsewhere; R42 Dizziness and giddiness
CPT/HCPCS: 96365; 87040 ×2; 87088; 85025 ×2; 87086; 36415; 80076; 83605; 87077; 87186; 81003; 84153; 80053; 84145; 76377; 74176; 71045; 96375; 99285; J0696 ×4; J7030 ×6; G0378 ×2

== ENCOUNTER 2021-12-13 03:53 | Observation (INO) | payer OTHER ==
--- OUTSIDE RECORDS SUMMARY | 2021-12-13 03:54 | XMS REPORT | Continuity of Care Document ---
:1955 Author Organization [facility] t Address [address] [place] [address] Care Team Providers Name Role Phone Unavailable Unavailable Unavailable Problems Condition Condition Condition Status Onset Resolution Last Treating Co mments Source Name Details Category Date Date Treatment Clinician Date Adhesive Adhesive Problem Active Commo n capsulitis capsulitis Sp glendy of left of left - [facility] shoulder shoulder [facility] Left Left Problem Active Common bicipital bicipital Spir it tenosynovi tenosynovi - [facility] tis tis [facility] Impingemen Impingemen Diagnosis Active Common t syndrome t syndrome Sp glendy of left of left - [facility] Pain in Pain in Diagnosis Active Commo n joint of joint of Spirit left left - [facility] shoulder [facility] Allergies, Adverse Reactions, Alerts This patient has no known allergies or adverse reactions. Medications Ordered Filled Start Stop Current Ordering Indication Dosage Frequency Signature Comments Components Source Medication Medication Date Date Medication? Clinician (SIG) Name Name Meclizine Meclizine Yes Gael not Com mon HCl HCl Mtz defined [facility] Procedures This patient has no known procedures. Encounters Start End Encounter Admission Attending Care Care Encounter Source Date/Time Date/Time Type Type Clinicians Facility Department ID 2018-09-27 2018-09-27 [id number] Common 09:00:00 09:00:00 [facility] 2018-08-30 2018-08-30 [id number] Common 08:30:00 08:30:00 [facility] Results This patient has no known results.
[2021-12-13] MEDS ORDERED: ONDANSETRON 4 MG/2 ML VIAL ONE (04:15)
[2021-12-13] MEDS ORDERED: MORPHINE 4 MG/ML SYR ONE (04:15)
[2021-12-13 04:21] LABS: Absolute Lymphocytes (CBC) 2.9 K/uL (0.7-4.9); Hematocrit 48.1 % (39.6-49.0); Lymphocytes % 38.4 % (15.3-44.8); MCV 92.1 fL (80-100); RBC Red Blood Cell Count 5.23 M/uL (4.33-5.43)
[2021-12-13 04:38] LABS: Potassium 3.9 mmol/L (3.5-5.1); Troponin High Sensitivity 8.2 pg/mL (<58.9)
--- NOTE | 2021-12-13 05:06 | ER ---
Nurse's Notes [facility] Name: Renato Montoya Age: 66 yrs Sex: Male : 1955 Arrival Date: 12/13/2021 Time: 03:54 Bed 19 Private MD: Diagnosis: Chest pain, unspecified Presentation: 12/13 04:03 Chief complaint: Patient states: "I had some chest pain that started around midnight tw5 after I used my hand to get out of the bed. It honestly feels like I pulled something.". Coronavirus screen: Vaccine status: Patient reports receiving the 2nd dose of the covid vaccine. [employer]. Ebola Screen: Patient negative for fever greater than or equal to 101.5 degrees Fahrenheit, and additional compatible Ebola Virus Disease symptoms Patient denies exposure to infectious person. Patient denies travel to an Ebola-affected area in the 21 days before illness onset. Initial Sepsis Screen: Does the patient meet any 2 criteria? No. Patient's initial sepsis screen is negative. Does the patient have a suspected source of infection? No. Patient's initial sepsis screen is negative. Risk Assessment: Do you want to hurt yourself or someone else? Patient reports no desire to harm self or others. Onset of symptoms was December 13, 2021 at 00:00. 04:03 Method Of Arrival: Ambulatory tw5 04:03 Acuity: HONEY 2 tw5 Triage Assessment: 04:04 General: Appears in no apparent distress. Behavior is calm, cooperative, appropriate tw5 for age. Pain: Complains of pain in chest Pain currently is 5 out of 10 on a pain scale. Cardiovascular: Rhythm is sinus rhythm with 1st degree heart block. Historical: - Allergies: 04:04 No Known Allergies; tw5 - Home Meds: 04:47 Meclizine Oral [Active]; kd3 - PMHx: 04:04 Diverticulitis; Vertigo; tw5 - PSHx: 04:04 None; tw5 - Immunization history:: Flu vaccine is not up to date. - Social history:: Smoking status: Patient/guardian denies using tobacco, the patient reports quitting approximately 20 years ago. - Family history:: not pertinent. - Hospitalizations: : No recent hospitalization is reported. Screenin:46 Abuse screen: Denies threats or abuse. Denies injuries from another. Nutritional kd3 screening: No deficits noted. Tuberculosis screening: No symptoms or risk factors identified. Fall Risk None identified. Assessment: 04:47 Pain: Pain does not radiate. Pain began gradually. kd3 07:41 Reassessment: No changes from previously documented assessment. Patient and/or family kr3 updated on plan of care and expected duration. Pain level reassessed. Vital Signs: 04:03 BP 156 / 96; Pulse 64; Resp 18; Temp 97.6; Pulse Ox 100% ; Weight 86.18 kg; Height 5 tw5 ft. 6 in. (167.64 cm); Pain 5/10; 04:46 BP 113 / 80; Pulse 66; Resp 12; Pulse Ox 98% on R/A; kd3 07:43 BP 110 / 73; Pulse 56; Resp 16; Pulse Ox 98% on R/A; kr3 04:03 Body Mass Index 30.67 (86.18 kg, 167.64 cm) tw5 ED Course: 03:54 Patient arrived in ED. ja2 03:54 Walter Zamora MD is Attending Physician. rn 03:55 Grecia Gregorio RN is Primary Nurse. kd3 04:04 Triage completed. tw5 04:04 Arm band placed on. tw5 04:11 Troponin HS Sent. tw5 04:11 NT PRO-BNP Sent. tw5 04:11 D-Dimer Sent. tw5 04:11 CBC with Diff Sent. tw5 04:11 Basic Metabolic Panel Sent. tw5 04:47 Patient has correct armband on for positive identification. Client placed on continuous kd3 cardiac and pulse oximetry monitoring. NIBP monitoring applied. 04:47 No provider procedures requiring assistance completed. Inserted saline lock: 20 gauge kd3 in right antecubital area, using aseptic technique. Blood collected. Patient maintains SpO2 saturation greater than 95% on room air. 05:05 Renato Damico MD is Hospitalizing Provider. rn 05:07 Rm Zamora MD is Hospitalizing Provider. la1 07:00 SARS RAPID Sent. kd3 07:50 Report given to Flor Rios RN. kr3 08:01 Patient admitted, IV remains in place. kr3 Administered Medications: 04:17 Not Given (Patient Refused): morphine 4 mg IVP once over 4 mins tw5 04:17 Not Given (Patient Refused): Zofran (Ondansetron) 4 mg IVP once; over 2 minutes tw5 Medication: 04:48 VIS not applicable for this client. kd3 Outcome: 05:05 Decision to Hospitalize by Provider. rn 08:00 Admitted to Med/surg accompanied by tray, via wheelchair, Report called to alexander Sawyer RN 08:00 Condition: stable 08:00 Instructed on the need for admit. 08:02 Patient left the ED. alexander Signatures: Walter Zamora MD MD rn Attema, Lee, [employer]-Nicole Jose Tiffany tw5 Grecia Gregorio RN RN kd3 Deepali Ritter RN RN kr3
--- NOTE | 2021-12-13 05:06 | EDPHYS ---
Physician Documentation [facility] Name: Renato Montoya Age: 66 yrs Sex: Male : 1955 Arrival Date: 12/13/2021 Time: 03:54 Bed 19 Private MD: ED Physician Walter Zamora HPI: 12/13 04:03 This 66 yrs old Male presents to ER via Unassigned with complaints of Chest Pain. rn 04:03 The patient or guardian reports chest pain that is located primarily in the left rn breast. Onset: 4 hour(s) ago. The pain radiates to Associated signs and symptoms: Pertinent negatives: abdominal pain, cough, diaphoresis, dizziness, headache, lower extremity pain, lower extremity swelling, lightheadedness, nausea, near syncope, palpitations, shortness of breath, syncope, vomiting. The chest pain is described as aching. Duration: The patient or guardian reports a single episode, that is still ongoing. Modifying factors: The symptoms are alleviated by nothing. the symptoms are aggravated by nothing. Severity of pain: At its worst the pain was mild in the emergency department the pain is unchanged. The patient has not experienced similar symptoms in the past. The patient has not recently seen a physician. Pt reports pain that began around midnight, left sided chest pain, aching, radiates to back with deep breath. NO fever/cough/trauma. Sees Dr. Oneal annually and no known cardiac disease. . Historical: - Allergies: 04:04 No Known Allergies; tw5 - Home Meds: 04:47 Meclizine Oral [Active]; kd3 - PMHx: 04:04 Diverticulitis; Vertigo; tw5 - PSHx: 04:04 None; tw5 - Immunization history:: Flu vaccine is not up to date. - Social history:: Smoking status: Patient/guardian denies using tobacco, the patient reports quitting approximately 20 years ago. - Family history:: not pertinent. - Hospitalizations: : No recent hospitalization is reported. ROS: 04:03 Constitutional: Negative for fever, chills, and weight loss, Eyes: Negative for injury, rn pain, redness, and discharge, Neck: Negative for injury, pain, and swelling, Cardiovascular: Negative for palpitations, and edema, Respiratory: Negative for shortness of breath, cough, wheezing, and pleuritic chest pain, Abdomen/GI: Negative for abdominal pain, nausea, vomiting, diarrhea, and constipation, Back: Negative for injury MS/Extremity: Negative for injury and deformity, Skin: Negative for injury, rash, and discoloration, Neuro: Negative for headache, weakness, numbness, tingling, and seizure. Exam: 04:03 Constitutional: This is a well developed, well nourished patient who is awake, alert, rn and in no acute distress. Ambulatory to room without difficulty or assistance. Head/Face: Normocephalic, atraumatic. Cardiovascular: Regular rate and rhythm. No pulse deficits. Respiratory: Clear bilateral breath sounds. No increased work of breathing, no retractions or nasal flaring. Abdomen/GI: soft, non-tender Skin: Warm, dry MS/ Extremity: Pulses equal, no cyanosis. Neurovascular intact Neuro: Awake and alert, GCS 15 04:13 ECG was reviewed by the Attending Physician. rn Vital Signs: 04:03 BP 156 / 96; Pulse 64; Resp 18; Temp 97.6; Pulse Ox 100% ; Weight 86.18 kg; Height 5 tw5 ft. 6 in. (167.64 cm); Pain 5/10; 04:46 BP 113 / 80; Pulse 66; Resp 12; Pulse Ox 98% on R/A; kd3 07:43 BP 110 / 73; Pulse 56; Resp 16; Pulse Ox 98% on R/A; kr3 04:03 Body Mass Index 30.67 (86.18 kg, 167.64 cm) tw5 MDM: 03:54 Patient medically screened. rn 04:02 The patient was not given aspirin in the Emergency Department. Patient reports taking rn aspirin within the past 24 hours. 05:02 Differential diagnosis: acute myocardial infarction, acute pericarditis, coronary rn artery disease costochondritis, pericarditis, pleurisy, pneumothorax, pulmonary embolus, stable angina, unstable angina. Data reviewed: vital signs, nurses notes, lab test result(s), radiologic studies, plain films, and as a result, I will admit patient. Counseling: I had a detailed discussion with the patient and/or guardian regarding: the historical points, exam findings, and any diagnostic results supporting the discharge/admit diagnosis, lab results, radiology results, the need for further work-up and treatment in the hospital. Medical screen evaluation completed. EMTALA emergency medical condition absent. Response to treatment: the patient's symptoms have mildly improved after treatment, and as a result, I will admit patient. Admission orders: after a detailed discussion of the patient's condition and case, the admit orders are written by me. ED course: ECG without ischemic findings, trop neg, spoke with patient regarding next steps, patient not comfortable going home with weekend coming up and no clear etiology for chest pain. Pt still hurting. . 12/13 04:02 Order name: Basic Metabolic Panel rn 12/13 04:02 Order name: CBC with Diff rn 12/13 04:02 Order name: D-Dimer rn 12/13 04:02 Order name: NT PRO-BNP rn 12/13 04:02 Order name: Troponin HS rn 12/13 04:22 Order name: CBC with Automated Diff; Complete Time: 04:26 EDMS 12/13 04:02 Order name: XRAY Chest (1 view) rn 12/13 04:25 Order name: D-Dimer; Complete Time: 04:26 EDMS 12/13 04:38 Order name: Basic Metabolic Panel; Complete Time: 04:55 EDMS 12/13 04:38 Order name: Troponin High Sensitivity; Complete Time: 04:55 EDMS 12/13 04:38 Order name: NT PRO-BNP; Complete Time: 04:55 EDMS 12/13 05:26 Order name: SARS RAPID tw5 12/13 05:52 Order name: SARS-COV-2 Antigen Rapid EDIN 12/13 04:02 Order name: EKG; Complete Time: 04:03 rn 12/13 04:02 Order name: Cardiac monitoring; Complete Time: 04: rn 12/13 04:02 Order name: EKG - Nurse/Tech; Complete Time: 04:11 rn 12/13 04:02 Order name: IV Saline Lock; Complete Time: 04: rn 12/13 04:02 Order name: Labs collected and sent; Complete Time: 04: rn 12/13 04:02 Order name: O2 Per Protocol; Complete Time: 04: rn 12/13 04:02 Order name: O2 Sat Monitoring; Complete Time: 04:11 rn EC:13 Rate is 60 beats/min. Rhythm is regular. QRS [place] is Normal. GA interval is prolonged rn at 256 msec. QRS interval is normal. QT interval is normal. No Q waves. T waves are Normal. No ST changes noted. Clinical impression: NSR w/ Non-specific ST/T Changes and 1st degree heart block. Reviewed by me. Administered Medications: 04:17 Not Given (Patient Refused): morphine 4 mg IVP once over 4 mins tw5 04:17 Not Given (Patient Refused): Zofran (Ondansetron) 4 mg IVP once; over 2 minutes tw5 Disposition Summary: 12/13/21 05:05 Hospitalization Ordered Hospitalization Status: Observation rn Location: Telemetry/MedSurg (observation) rn Condition: Stable rn Problem: new rn Symptoms: have improved rn Bed/Room Type: Standard rn Provider: Rm Zamora(12/13/21 05:08) ken Room Assignment: [facility](12/13/21 07:32) ina Diagnosis - Chest pain, unspecified rn Forms: - Medication Reconciliation Form rn - SBAR form rn Signatures: Dispatcher [employer] EDMS Walter Zamora MD MD rn Attema, Lee, TAG METER OPERATOR-C TAG METER OPERATOR-[facility]1 Reyna Cardenas Tiffany tw5 Grecia Gregorio RN RN kd3 Corrections: (The following items were deleted from the chart) 05:08 05:05 Renato Damico rn la1 07:32 05:05 david buckley
--- NOTE | 2021-12-13 05:25 | P.HP ---
Certification for Inpatient Patient admitted to: Observation With expected LOS: <2 Midnights Patient will require the following post-hospital care: None Practitioner: I am a practitioner with admitting privileges, knowledge of patient current condition, hospital course, and medical plan of care. Services: Services provided to patient in accordance with Admission requirements found in Title 42 Section 412.3 of the Code of Federal Regulations <Carlito Dean Grady - Last Filed: 12/13/21 05:22> Patient History Date of Service: 12/13/21 Reason for admission: Chest pain History of Present Illness: 66-year-old male with no significant chronic past medical history presents emergency department for chest pain. He reports he was lying in bed around midnight with began to feel soreness in his left chest. He denies any associated symptoms or similar episodes in the past. He reports he gets stress tests every couple of years his last 1 was a little over a year ago and negative per patient. He has never had a heart catheterization. He was evaluated in the emergency department his initial high-sensitivity troponin was negative8.2 EKG showed first-degree block without any STEMI criteria present. Patient reports his pain is improved at this time ED provider wishes to admit under observation for ACS rule out. - Past Medical/Surgical History Diabetic: No -: told had HTN from EKG. never treated -: both wrists -: rt leg - "compression injury" -: UTI "long time ago" ~ 10 yrs ago -: cholecystectomy Psychosocial/ Personal History: Retired, lives at home with - Family History Mother -: Diabetes - Social History Smoking Status: Never smoker Alcohol use: Yes CD- Drugs: No Caffeine use: Yes Place of Residence: Home <JermaineCarlito Rasmussen - Last Filed: 12/13/21 05:22> Date of Service: 12/13/21 <Rm Zamora - Last Filed: 12/13/21 19:35> Allergies No Known Allergies Allergy (Verified 02/01/15 23:08) Home Medications: NK [No Home Meds] 12/13/21 Review of Systems 10-point ROS is otherwise unremarkable Cardiovascular: Chest Pain <Carlito Dean - Last Filed: 12/13/21 05:22> Physical Examination - Physical Exam General: Alert, In no apparent distress, Oriented x3 HEENT: Atraumatic, PERRLA, Mucous membr. moist/pink, EOMI, Sclerae nonicteric Neck: Supple, 2+ carotid pulse no bruit, No LAD, Without JVD or thyroid abnormality Respiratory: Clear to auscultation bilaterally, Normal air movement Cardiovascular: Regular rate/rhythm, Normal S1 S2 Gastrointestinal: Normal bowel sounds, No tenderness Musculoskeletal: No tenderness Integumentary: No rashes Neurological: Normal gait, Normal speech, Normal strength at 5/5 x4 extr, Normal tone, Normal affect Lymphatics: No axilla or inguinal lymphadenopathy - Studies Laboratory Data (last 24 hrs) 12/13/21 04:11: WBC 7.70, Hgb 16.6, Hct 48.1, Plt Count 239 12/13/21 04:11: Sodium 140, Potassium 3.9, BUN 12, Creatinine 1.06, Glucose 106 <Carlito Dean - Last Filed: 12/13/21 05:22> - Studies Laboratory Data (last 24 hrs) 12/13/21 04:11: WBC 7.70, Hgb 16.6, Hct 48.1, Plt Count 239 12/13/21 04:11: Sodium 140, Potassium 3.9, BUN 12, Creatinine 1.06, Glucose 106 <Rm Zamora - Last Filed: 12/13/21 19:35> Assessment and Plan - Plan Assessment: Chest pain R/O ACS Plan: Chest pain R/O ACS: Trend troponins, monitor on tele. Cardiology consult in place. took ASA prior to ED presentation. will obtain lipid panel. DDimer negative. DVT PPX:Lovenox Code status:Full Discharge Plan: Home Plan to discharge in: 24 Hours - Advance Directives Does patient have a Living Will: Yes Does patient have a Durable POA for Healthcare: Yes - Code Status/Comfort Care Code Status Assessed: Yes (Full code) Critical Care: No Time Spent Managing Pts Care (In Minutes): 55 <Carlito Dean - Last Filed: 12/13/21 05:22>
[2021-12-13 05:51] LABS: SARS-CoV-2 Antigen Rapid Res Negative (Negative)
[2021-12-13 08:16] VITALS: BMI 30.7
[2021-12-13 08:43] VITALS: TEMP 97.1
[2021-12-13] MEDS ORDERED: INFLUENZA VACCINE (for 6+ mo) 0.5 ML DOSE IMVAC ONE (09:00)
[2021-12-13] MEDS ORDERED: PNEUMOCOCCAL VACCINE 0.5 ML IMVAC ONE (09:00)
[2021-12-13] MEDS ORDERED: ENOXAPARIN 40 MG/0.4 ML SQ SCH (09:28)
[2021-12-13] MEDS ORDERED: METOPROLOL TAR 25 MG TAB PO SCH (09:28)
[2021-12-13] MEDS ORDERED: ONDANSETRON 4 MG/2 ML VIAL IV PRN (09:28)
[2021-12-13 12:01] VITALS: BP 127/72
--- NOTE | 2021-12-13 13:19 | CON ---
Date of Consultation: 12/13/[address] Zamora on 12/13/2021. I saw the patient on 12/13/2021. Reason For Consultation: Atypical chest pain. History Of Present Illness: Mr. Montoya is a 66-year-old very healthy man, does not take any medicine for blood pressure, diabetes, or cholesterol. He does not have a family history of heart disease. He does not smoke, woke up with left upper shoulder, left arm pain that was sharp, stabbing , felt like a pulled muscle, lasted on and off for about 4 hours. He was anxious and and he came to the emergency room. EKG is normal. Chest x-ray is normal. Troponin is normal. BNP is n ormal. No pain now. Past Medical History: Negative. Allergies: NONE. Review of Systems: Negative. Social History: Negative. Family History: Negative. Medications: At home, he is on no medicines. Physical Examination: Vital Signs: Stable, afebrile, sinus rhythm. HEENT: Negative. Chest: Clear. Cardiac: Normal. Extremities: Revealed no clubbing, cyanosis, or edema. Diagnostic Data: All normal. Impression And Plan: Atypical chest pain, most likely musculoskeletal. The patient had a negative s tress test a year ago by Dr. Oneal. I am comfortable with him going home without any workup. At t his point, he will follow up with Dr. Oneal at his convenience. This is definitely a noncardiac pa in in nature. TANYA/SAMREEN Voice ID: [id number] Report ID: [id number]
--- NOTE | 2021-12-13 18:03 | RAD REPORT ---
EXAM DESCRIPTION: RAD - Chest Single View - 12/13/2021 4:21 am CLINICAL HISTORY: 66 years Male CHEST PAIN COMPARISON: None FINDINGS: Lung volumes diminished. Cardiac silhouette is normal. No pneumothorax. No large pleural effusion. No focal consolidation. No acute bony finding. IMPRESSION: No acute cardiopulmonary findings. Electronically signed by: Emilia Carey MD 12/13/2021 4:33 AM CDT Due to temporary technical issues with the PACS/Fluency reporting system, reports are being signed by the in house radiologists without review as a courtesy to insure prompt reporting. The interpreting radiologist is fully responsible for the content of the report.
[2021-12-13] MEDS ORDERED: ATORVASTATIN 40 MG TAB PO SCH (21:00)
[2021-12-14 01:27] VITALS: O2SAT 98
[2021-12-14] MEDS ORDERED: ASPIRIN EC 81 MG TAB PO SCH (09:00)
--- NOTE | 2021-12-15 07:48 | EKG ---
Test Date: 2021-12-13 Test Time: 03:58:04 Call Center Nurse: AYDEN MEASUREMENT RESULTS: Intervals: Rate: 60 AK: 256 QRSD: 90 QT: 432 QTc: 432 [place]: P: 34 AK: 256 QRS: 7 T: 47 INTERPRETIVE STATEMENTS: Sinus rhythm with 1st degree AV block Otherwise normal ECG Compared to ECG 09/26/2018 15:34:16 Sinus bradycardia no longer present Electronically Signed On 12-15-21 07:44:36 CDT by Benja Stephenson
== END 2021-12-13 13:13 | disposition home or self-care (01) ==
LOC: ER 03:53 → ERHOLD 05:16 → 4TH 07:50
PROVIDERS: ADMIT Hospitalist; ATTEND Hospitalist
DX: R07.9 Chest pain, unspecified (principal); Z20.822 Contact with and (suspected) exposure to COVID-19
CPT/HCPCS: 93005; 85025; 80048; 36415; 80061; 85379; 84484 ×2; 83880; 71045; 90471 ×2; 90732; 99285; 87811; Q2035; J1650; G0378 ×2; J2405